=== PATIENT | female | born 1980 | race Caucasian/White ===

== ENCOUNTER 2017-01-13 05:16 | Inpatient (IN) ==
[2017-01-13] MEDS ORDERED: LACTATED RINGERS 250 ML IV ONE (05:41)
[2017-01-13] MEDS ORDERED: ONDANSETRON 4 MG/2 ML VIAL IV PRN (05:41)
[2017-01-13] MEDS ORDERED: MEPERIDINE 50 MG/1 ML VIAL IV PRN (05:41)
[2017-01-13] MEDS ORDERED: OXYTOCIN/LR 20 UNIT/1,000 ML BAG IV SCH (06:00)
[2017-01-13] MEDS ORDERED: LACTATED RINGERS 1,000 ML IV SCH ×2 (06:00→08:00)
[2017-01-13] MEDS: AMPICILLIN INJ 2,000 MG in SODIUM CHLORIDE 0.9% 50 ML IV SCH ×2 (06:33→12:50)
[2017-01-13 06:44] LABS: Basophils % 0.3 % (0.0-0.8); Eosinophils # 0.1 10*3/uL (0.0-0.87); Eosinophils % 0.9 % (0.00-10.9); Hematocrit 32.3 VOL% (35.7-47.0); Hemoglobin 10.7 GM/DL (12.0-16.0); Immature Granulocytes % 0.6 %; Immature Granulocytes Absolute 0.06 #; Lymphocytes # 2.6 10*3/uL (1.4-4.0); Lymphocytes % 24.2 % (21.3-54.2); Mean Corpuscular HGB Conc 33.1 GM/DL (32-36); Mean Corpuscular Hemoglobin 29 PG (27-34); Mean Platelet Volume 11.4 FL (9.6-12.0); Monocytes # 0.6 10*3/uL (0.11-0.8); Monocytes % 5.9 % (1.7-12.7); Neutrophils # 7.4 10*3/uL (1.4-7.4); Neutrophils % 68.1 % (38.7-73.9); Platelet Count 194 T/CUMM (130-400); Red Blood Count 3.67 MC/CUMM (3.8-5.5); Red Cell Distribution Width 13.7 % (9.3-17.3); White Blood Count 10.9 T/CUMM (4-12)
[2017-01-13 07:12] LABS: Alanine Aminotransferase 18 U/L (13-56); Albumin 2.5 G/DL (3.4-5.0); Alkaline Phosphatase 111 U/L (45-117); Aspartate Amino Transferase 19 U/L (0-37); Bilirubin,Total < 0.39 MG/DL (0.2-1.0); Blood Urea Nitrogen 14 MG/DL (7-18); Calcium 8.3 MG/DL (8.5-10.1); Glucose 94 MG/DL (74-106); Osmolality,Calculated 277.5 MOS/KG (273-304); Potassium 3.6 MMOL/L (3.5-5.1); Sodium 139 MMOL/L (136-145); Total Protein 5.6 G/DL (6.4-8.3)
[2017-01-13] MEDS ORDERED: CITRIC ACID/SODIUM CITRATE 30 ML UDCUP PO ONE (07:39)
[2017-01-13] MEDS ORDERED: LACTATED RINGERS 1,000 ML IV ONE (07:39)
[2017-01-13] MEDS ORDERED: FAMOTIDINE 20 MG/2 ML VIAL IV ONE (07:39)
[2017-01-13] MEDS ORDERED: ePHEDrine 50 MG/ML AMP IV PRN (07:39)
[2017-01-13] MEDS ORDERED: PROMETHAZINE 25 MG/1 ML VIAL IM ONE (07:39)
[2017-01-13] MEDS ORDERED: hydrOXYzine HCL 25 MG/1 ML VIAL IM PRN (07:39)
[2017-01-13] MEDS ORDERED: diphenhydrAMINE 50 MG/1 ML VIAL IV PRN ×2 (07:39)
[2017-01-13] MEDS ORDERED: ONDANSETRON 4 MG/2 ML VIAL IV ONE (07:39)
[2017-01-13] MEDS ORDERED: fentaNYL 2 MCG/ROPIV 0.2% EPID 150 ML EPIDURAL SCH (08:00)
[2017-01-13 10:59] LABS: Apearance,Urine CLEAR (Clear); Bacteria,Urine Occasional /HPF (Few); Bilirubin,Urine Negative (Negative); Blood, Urine Small mg/dL (Negative); Glucose,Urine (UA) Negative (Negative); Ketones,Urine Negative (Negative); Mucus,Urine Occasional /LPF (Occasional); Nitrite,Urine Negative (Negative); Protein,Urine Negative; RBC,Urine 1 /HPF (0-4); Urine Color Yellow (Yellow); Urine Specific Gravity 1.006 (1.001-1.035); Urine Urobilinogen < 2.0 EU/DL (0.2-1.0); WBC,Urine <1 /HPF (0-6)
[2017-01-13] MEDS ORDERED: miSOPROStol 200 MCG TABLET ONE (12:45)
[2017-01-13] MEDS ORDERED: LIDOCAINE 1% 50 ML VIAL ONE (12:45)
[2017-01-13 14:45] LABS: Cord Arterial Blood HCO3 25.3 MMOL/L
[2017-01-13 14:48] LABS: Cord Venous Blood HCO3 23.5 MMOL/L; Cord Venous Blood PCO2 42.3 MMHG; Cord Venous Blood PO2 19.7 MMHG
[2017-01-13] MEDS ORDERED: OXYTOCIN/LR 20 UNIT/1,000 ML BAG IV ONE (18:56)
[2017-01-13] MEDS ORDERED: HYDROCORTISONE 2.5% RECTAL CREAM 30 GM TUBE TOP PRN (20:33)
[2017-01-13] MEDS ORDERED: BISACODYL 10 MG SUPP RECTAL PRN (20:33)
[2017-01-13] MEDS ORDERED: LANOLIN 50% CREAM 0.3 OZ TUBE TOP PRN (20:33)
[2017-01-13] MEDS ORDERED: DIPH/TET/ACEL PERT BOOSTER VACCINE 0.5 ML VIAL IM ONE (20:33)
[2017-01-13] MEDS ORDERED: RHO(D) IMMUNE GLOBULIN 300 MCG SYRINGE IM ONE (20:33)
[2017-01-13] MEDS ORDERED: MEASLES/MUMPS/RUBELLA VACCINE 0.5 ML VIAL SUBCUT ONE (20:33)
[2017-01-13] MEDS ORDERED: IBUPROFEN 800 MG TABLET PO PRN (20:33)
[2017-01-13] MEDS ORDERED: WITCH HAZEL PADS 100/JAR TOP PRN (20:33)
[2017-01-13] MEDS ORDERED: ACETAMINOPHEN 325 MG TABLET PO PRN (20:33)
[2017-01-13] MEDS ORDERED: oxyCODONE/ACETAMINOPHEN 5-325 MG TABLET PO PRN (20:33)
[2017-01-13] MEDS: DOCUSATE SODIUM 100 MG CAPSULE PO SCH (21:29)
[2017-01-13] MEDS: BENZOCAINE 20%/MENTHOL 0.5% SPRAY 56 GM CAN TOP PRN (21:29)
[2017-01-13] MEDS: oxyCODONE/ACETAMINOPHEN 5-325 MG TABLET PO PRN (21:30)
[2017-01-14] MEDS: oxyCODONE/ACETAMINOPHEN 5-325 MG TABLET PO PRN ×3 (04:42→20:53)
[2017-01-14 06:28] LABS: Basophils % 0.2 % (0.0-0.8); Eosinophils # 0.1 10*3/uL (0.0-0.87); Eosinophils % 0.7 % (0.00-10.9); Immature Granulocytes % 0.5 %; Immature Granulocytes Absolute 0.07 #; Lymphocytes # 2.7 10*3/uL (1.4-4.0); Lymphocytes % 18.3 % (21.3-54.2); Mean Corpuscular HGB Conc 33.3 GM/DL (32-36); Mean Corpuscular Hemoglobin 30 PG (27-34); Mean Corpuscular Volume 88.8 FL (87-102); Mean Platelet Volume 11.3 FL (9.6-12.0); Monocytes # 0.9 10*3/uL (0.11-0.8); Monocytes % 6.2 % (1.7-12.7); Neutrophils % 74.1 % (38.7-73.9); Platelet Count 161 T/CUMM (130-400); Red Blood Count 3.38 MC/CUMM (3.8-5.5); Red Cell Distribution Width 13.8 % (9.3-17.3); White Blood Count 14.8 T/CUMM (4-12)
[2017-01-14] MEDS: DOCUSATE SODIUM 100 MG CAPSULE PO SCH ×2 (09:38→20:52)
[2017-01-14] MEDS ORDERED: MAGNESIUM HYDROXIDE SUSP 30 ML UDCUP PO PRN (18:02)
[2017-01-14] MEDS: SIMETHICONE CHEW 80 MG TABLET PO PRN (20:52)
[2017-01-15 07:16] VITALS: BP 105/54
[2017-01-15] MEDS: oxyCODONE/ACETAMINOPHEN 5-325 MG TABLET PO PRN (07:44)
[2017-01-15] MEDS: BENZOCAINE 20%/MENTHOL 0.5% SPRAY 56 GM CAN TOP PRN (07:45)
[2017-01-15] MEDS: SIMETHICONE CHEW 80 MG TABLET PO PRN (07:45)
== END 2017-01-15 10:06 | disposition home or self-care (01) | DRG 775 ==
LOC: N.LDOUT 05:16 → N.LD 05:19 → N.OB 20:17
PROVIDERS: ADMIT Obstetrics & Gynecology; ATTEND Obstetrics & Gynecology